=== PATIENT | female | born 1990 | race Two or more races ===

== ENCOUNTER 2021-03-19 04:46 | Emergency (ER) | payer SELFPAY ==
[~2021-03-19] VITALS: Ht 170.2 cm; Wt 81.6 kg
--- NOTE | 2021-03-19 05:03 | NUR ---
Patient discharged medically cleared for booking. Written and verbal after care instructions given. Patient verbalizes understanding of instruction.
[2021-03-19 05:39] VITALS: BP 132/80
== END 2021-03-19 05:40 ==
LOC: ER 04:46
DX: Z02.89 Encounter for other administrative examinations (principal); Z98.890 Other specified postprocedural states; Z60.2 Problems related to living alone